=== PATIENT | female | born 1960 | race Caucasian/White ===

== ENCOUNTER 2023-11-30 14:23 | Outpatient (CLI) | payer MEDICARE | END 2023-11-30 14:24 | disposition home or self-care (01) | LOC: BICCT 14:23 | PROVIDERS: ATTEND Family Medicine | DX: Z12.2 Encounter for screening for malignant neoplasm of respiratory organs (principal); Z87.891 Personal history of nicotine dependence; R91.8 Other nonspecific abnormal finding of lung field; I25.10 Atherosclerotic heart disease of native coronary artery without angina pectoris; I70.0 Atherosclerosis of aorta; M47.9 Spondylosis, unspecified | CPT/HCPCS: 71271 ==